=== PATIENT | male | born 1995 | race Caucasian/White ===

== ENCOUNTER 2017-10-08 17:13 | Emergency (ER) | payer MEDICAID ==
[~2017-10-08] VITALS: Ht 177.8 cm; Wt 62.9 kg
[~2017-10-08 17:13] MED LIST: BISM262O PO; NO HOME MEDS; OMEP20CA4 PO; ONDA8TAB6 PO
[2017-10-08 18:25] VITALS: BP 151/86
[2017-10-08] MEDS ORDERED: ONDA4TAB9 SL (19:54)
== END 2017-10-08 20:11 | disposition home or self-care (01) ==
LOC: ER 17:13
DX: R10.84 Generalized abdominal pain (principal); R11.2 Nausea with vomiting, unspecified; F12.10 Cannabis abuse, uncomplicated; Z79.899 Other long term (current) drug therapy
CPT/HCPCS: 99283